=== PATIENT | male | born 1955 | race Caucasian/White ===

== ENCOUNTER → 2022-10-17 08:17 | Outpatient (BNVA) | payer MEDICARE, SELFPAY | PROVIDERS: Family Provider Family Medicine; PCP Family Medicine; Visit Provider Family Medicine | DX: Z00.00 Encounter for general adult medical examination without abnormal findings (principal); R07.9 Chest pain, unspecified; I25.10 Atherosclerotic heart disease of native coronary artery without angina pectoris; I10 Essential (primary) hypertension | CPT/HCPCS: 80053; 80061 ==

== ENCOUNTER → 2022-11-23 09:15 | Outpatient (BNVA) | payer MEDICARE, OTHER, SELFPAY | PROVIDERS: Family Provider Family Medicine; PCP Family Medicine; Visit Provider Family Medicine | DX: Z00.00 Encounter for general adult medical examination without abnormal findings (principal); R33.9 Retention of urine, unspecified | CPT/HCPCS: 84153 ==

== ENCOUNTER 2022-12-14 06:43 | Outpatient (CLI) | payer MEDICARE, SELFPAY ==
--- NOTE | 2022-12-14 | ECG_ITS ---
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 Interpretive Statements NAME OF STUDY: EXERCISE SESTAMIBI STRESS TEST INDICATION: [Chest Pain, ] EXERCISE DATA: The patient was exercised by Nitin protocol. Baseline heart rate was 73 beats per minute. Baseline blood pressure was 136/94 millimeters of mercury. Target heart rate was 131 beats per minute. Maximum heart rate achieved was 137, which was 104% of the target heart rate. Maximum blood pressure was 234/100 millimeters of mercury. Total exercise time was 8 minutes 3 seconds. Maximum METs achieved was 10.2. The reason for ending the test was maximal effort achieved. The patient complained of shortness of breath during the stress test, which then resolved at the end of the test. ELECTROCARDIOGRAM: BASELINE: Showed sinus rhythm, normal axis, no significant ST-T changes at the baseline noted. [] EXERCISE: At the peak exercise level, [] No significant ST-T changes suggestive of ischemia noted. [] RECOVERY: During the recovery period, heart rate dropped appropriately. No significant ST-T changes in the recovery suggestive of ischemia noted. [] CONCLUSION: 1. Exercise capacity is good 2. Heart rate response was appropriate. 3. Blood pressure response was hypertensive 4. Symptoms not suggestive of ischemia. 5. Electrocardiogram portion of the stress test was not suggestive of ischemia. 6. Nuclear scan will be documented separately. Electronically Signed On 12-31-2022 12:14:23 CDT by Montrell Gongora M.D. [id number]
[2022-12-14 07:04] VITALS: BMI 28.7
--- NOTE | 2022-12-14 07:07 | NMCV_ITS ---
NM claire perf SPECT r/s* [id number] Martín Cerrato Age: 67 Gender: M : 1955 Exam Date: 12/14/2022 08:05 Ordering Phys: Darian Vasquez MD Technologist: JULEE Borges Exam Location: [facility] Indications: CHEST PAIN STRESS TEST Please see separate stress test report in [employer] for full findings IMAGE PROTOCOL Rest/Stress 1 Exercise Day Radiopharmaceutical Dose (mCi) Administration Site Administered by Rest: Tc-99m 10.4 IV Vargas Anna, ELECTRICIAN'S HELPER Sestamibi Stress:Tc-99m 32.9 IV Vargas Anna, ELECTRICIAN[employer]S HELPER Sestamibi Rest: 14-Dec-2022 60 Discovery 630 Stress: 14-Dec-2022 30 Discovery 630 Radiopharmaceutical was injected at 85 % maximum heart rate. Images obtained in supine and prone position. SPECT RESULTS Technical Quality: Excellent Raw Data Analysis: Normal Image Corrections: No attenuation or motion correction applied Summed Stress Score: 0 Summed Rest Score: 3 Summed Difference Score: 0 PERFUSION FINDINGS SPECT images demonstrate homogeneous tracer distribution throughout the myocardium. FUNCTIONAL RESULTS (calculated via Gated SPECT) Stress Image LV EF (%): 69 Stress EDV (mL):107 TID: 0.94 Stress ESV (mL):33 FUNCTIONAL FINDINGS: There is normal left ventricular systolic function. IMPRESSIONS 1. Normal myocardial perfusion imaging with no evidence of ischemia 2. LV systolic function is normal Montrell Gongora MD (Electronically Signed) Final Date: 17 December 2022 12:03 S
[2022-12-14 09:29] VITALS: BP 137/84; PULSE 89
== END 2022-12-14 06:44 | disposition home or self-care (01) ==
LOC: CDL 06:45
PROVIDERS: PCP Family Medicine; Visit Provider Family Medicine
DX: R07.9 Chest pain, unspecified (principal)
CPT/HCPCS: 36415; 78452; 93017; A9500

== ENCOUNTER 2025-04-15 09:55 | Emergency (ER) | payer MEDICARE, SELFPAY ==
[2025-04-15 10:00] VITALS: BP 189/96; PULSE 62; RESP 16; TEMP 37; O2SAT 92; BMI 31.6
--- NOTE | 2025-04-15 10:09 | ECG_ITS ---
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 Measurements Intervals [place] Rate: 55 P: 47 NE: 225 QRS: 10 QRSD: 144 T: 103 QT: 442 QTc: 425 Interpretive Statements SINUS BRADYCARDIA WITH FIRST DEGREE AV BLOCK RIGHT BUNDLE BRANCH BLOCK [120+ ms QRS DURATION, UPRIGHT V1, 40+ ms S IN I/aVL/V4/V5/V6] POSSIBLE SEPTAL MYOCARDIAL INFARCTION , PROBABLY OLD [30 ms Q WAVE IN V1/V2] Compared to ECG 01/25/2019 02:09:39 First degree AV block now present Right bundle-branch block now present Myocardial infarct finding now present Sinus rhythm no longer present T-wave abnormality no longer present Electronically Signed On 04-17-2025 08:46:51 CDT by Montrell Gongora M.D. [id number]
--- NOTE | 2025-04-15 10:10 | XRR_ITS ---
PROCEDURE INFORMATION: Exam: XR Chest Exam date and time: 04/15/2025 10:23 AM Age: 69 years old Clinical indication: Pain; Other: Not specified; Additional info: Hypertension TECHNIQUE: Imaging protocol: Radiologic exam of the chest. Views: 1 view. COMPARISON: CR XR chest 1V [id number] 01/25/2019 2:20 AM FINDINGS: Lungs: Unremarkable. No consolidation. Pleural spaces: Unremarkable. No pleural effusion. No pneumothorax. Heart/Mediastinum: See Vasculature finding. Vasculature: Mild cardiomegaly and uncoiling of the thoracic aorta. Bones/joints: Unremarkable. XR/XR chest 1V portable [id number] IMPRESSION: No acute findings.
--- NOTE | 2025-04-15 10:15 | W.ED.HA ---
HPI - Headache General: Chief Complaint: Headache Stated Complaint: Milli Blood pressure,light headed headach Time Seen by Provider: 04/15/25 10:09 History of Present Illness: 69-year-old male with a history of hypertension who presents emergency room with headache, mild vision changes, ear pressure, congestion, cough and high blood pressure for the last 2 days. No chest pain. Although he says he does have occasional episodes of chest pain. He said a couple of years ago he had 2 separate stress test and initially was told he might of had a heart attack previously and then was told there was no damage to his heart. He has not had a cardiac cath. Again no chest pain. No shortness of breath. No abdominal pain. No nausea or vomiting. No focal motor deficits. No altered mental status Related Data Previous Rx's ?Medication ?Instructions ?Recorded clonidine HCl 0.1 mg tablet 0.1 mg PO DAILY #20 tabs 04/15/25 Allergies Allergy/AdvReac Type Severity Reaction Status Date / Time penicillin V Allergy Mild rash Verified 10/09/22 14:46 Review of Systems Narrative: Constitutional symptoms: Negative except as documented in HPI. Skin symptoms: Negative except as documented in HPI. Eye symptoms: Negative except as documented in HPI. ENMT symptoms: Negative except as documented in HPI. Respiratory symptoms: Negative except as documented in HPI. Cardiovascular symptoms: Negative except as documented in HPI. Gastrointestinal symptoms: Negative except as documented in HPI. Genitourinary symptoms: Negative except as documented in HPI. Musculoskeletal symptoms: Negative except as documented in HPI. Neurologic symptoms: Negative except as documented in HPI. Psychiatric symptoms: Negative except as documented in HPI. Endocrine symptoms: Negative except as documented in HPI. [facility]LY [facility] ED PFS: Medical History (Updated 04/15/25 @ 11:33 by Alessandra Krause MD) Coronary artery disease Hypertension Physical Exam Narrative: EXAM NARRATIVE: General: Alert, no acute distress. Skin: Warm, dry. Head: Normocephalic, atraumatic. Neck: Supple, trachea midline. Eye: Extraocular movements are intact. Ears, nose, mouth and throat: mucosa moist. Cardiovascular: Regular, Normal peripheral perfusion. Respiratory: Lungs are clear to auscultation, respirations are non-labored, breath sounds are equal, Symmetrical chest wall expansion. Gastrointestinal: Soft, Nontender, Non distended Musculoskeletal: Normal ROM, no deformity. Neurological: Alert and oriented, No focal neurological deficit observed. Psychiatric: Cooperative, appropriate mood & affect. Course Vital Signs: Vital signs: Vital Signs Temperature 98.6 F 04/15/25 10:00 Pulse Rate 54 L 04/15/25 11:28 Respiratory Rate 16 04/15/25 11:28 Blood Pressure 122/80 04/15/25 11:28 Pulse Oximetry 92 04/15/25 11:28 Oxygen Delivery Me thod Room Air 04/15/25 10:00 MDM - Headache Medical Decision Making Differential diagnosis for patient with chest pain includes but is not limited to and based on the above HPI, review of systems and physical exam: Pneumonia. unstable angina. angina. Acute coronary syndrome / AR. Pulmonary embolism. Costochondritis / musculoskeletal. Pleurisy. Pericarditis. Esophageal spasm. Pancreatis. Cholecystitis. Orders placed to evaluate differential diagnosis based on the above differential, HPI and physical exam EKG: Time 10:29 AM. Rate 55. Sinus bradycardia, No ST-T changes, no ectopy, right bundle branch block., This was reviewed and interpreted by myself the ER physician at 10:35 AM Chest x-ray: No acute process. No infiltrate. No pneumothorax. This was reviewed and interpreted by myself the emergency room physician. I also reviewed the radiology report. Lab Review: Laboratory results were reviewed and interpreted by myself the emergency room physician. No leukocytosis. No anemia. No renal failure. Liver enzymes are normal. Troponin is negative. Flu COVID and RSV are negative. I reviewed the patient's medical record. Reexamination: Patient remained stable. No increased work of breathing. No altered mental status. No focal motor deficits. Blood pressure has come down considerably without intervention to 122/81. When addressed this the did tell me that she wanted to disclose that she did give him some propranolol at home both last night and this morning. This is likely why his blood pressure came down. He has an appointment with his primary on Saturday. They can discuss if changes need to be made to his medication regimen. Assessment and plan: Accelerated hypertension - Discharged home - Discussed plan with patient. Answered any questions. - Evaluation and treatment of this problem were appropriate in the emergency setting. Lab Data 04/15/25 10:18 04/15/25 10:18 Radiology Impressions Chest X-Ray 04/15/25 10:10 IMPRESSION: No acute findings. Laboratory Results WBC 5.97 10^3/uL (3.29-11.43) 04/15/25 10:18 RBC 4.99 10^6/uL (3.85-5.65) 04/15/25 10:18 Hgb 14.50 g/dL (11.27-16.99) 04/15/25 10:18 Hct 43.0 % (37-53) 04/15/25 10:18 MCV 86.2 fl (82-101) 04/15/25 10:18 MCH 29.1 pg (27-33) 04/15/25 10:18 MCHC 33.7 g/dL (30-55) 04/15/25 10:18 RDW 13.2 % (12.1-15.1) 04/15/25 10:18 Plt Count 298 10^3/cmm (157-399) 04/15/25 10:18 MPV 9.6 fL (7.4-10.4) 04/15/25 10:18 Neut % (Auto) 57.9 % 04/15/25 10:18 Lymph % (Auto) 25.5 % 04/15/25 10:18 Webb % (Auto) 10.2 % 04/15/25 10:18 Eos % (Auto) 5.4 % 04/15/25 10:18 Baso % (Auto) 0.7 % 04/15/25 10:18 Neut # (Auto) 3.46 10^3/uL (1.8-7.7) 04/15/25 10:18 Lymph # (Auto) 1.5 10^3/uL (0.8-4.8) 04/15/25 10:18 Webb # (Auto) 0.6 10^3/uL (0.2-0.9) 04/15/25 10:18 Eos # (Auto) 0.3 10^3/uL (0.0-0.8) 04/15/25 10:18 Baso # (Auto) 0.0 10^3/uL (0.0-0.1) 04/15/25 10:18 Nucleated RBC % (auto) 0 % 04/15/25 10:18 Nucleated RBCs # 0.0 /100WBC 04/15/25 10:18 Sodium 138 mmol/L (136-145) 04/15/25 10:18 Potassium 4.5 mmol/L (3.5-5.1) 04/15/25 10:18 Chloride 103 mmol/L (98-107) 04/15/25 10:18 Carbon Dioxide 25 mmol/L (22-29) 04/15/25 10:18 Anion Gap 14.5 (5-19) 04/15/25 10:18 BUN 16 mg/dL (8-23) 04/15/25 10:18 Creatinine 0.8 mg/dL (0.7-1.2) 04/15/25 10:18 GFR Calculation 96.1 mL/min (90-130) 04/15/25 10:18 Glucose 111 mg/dL (65-115) 04/15/25 10:18 Calculated Osmolality 288 mOsm/kg (285-295) 04/15/25 10:18 Calcium 9.8 mg/dL (8.5-10.5) 04/15/25 10:18 Total Bilirubin 0.5 mg/dL (0.15-1.2) 04/15/25 10:18 AST 20 U/L (0-40) 04/15/25 10:18 ALT 20 U/L (0-41) 04/15/25 10:18 Alkaline Phosphatase 70 U/L (40-130) 04/15/25 10:18 Troponin T Baseline 9 ng/L (0-15) 04/15/25 10:18 Total Protein 7.4 g/dL (6.6-8.7) 04/15/25 10:18 Albumin 4.4 g/dL (3.5-5.2) 04/15/25 10:18 Globulin 3.0 g/dL (1.3-4.6) 04/15/25 10:18 Influenza A (PCR) Negative (Negative) 04/15/25 10:18 Influenza Type B (PCR) Negative (Negative) 04/15/25 10:18 RSV (PCR) Negative (Negative) 04/15/25 10:18 SARS-CoV-2 (PCR) Negative (Negative) 04/15/25 10:18 All radiology interpretation(s) finalized by discharge Discharge Plan Discharge Patient Disposition: Home Clinical Impression: Accelerated hypertension Condition: Stable Prescriptions: New clonidine HCl 0.1 mg tablet 0.1 mg PO DAILY Qty: 20 0RF Rx Instructions: For Systolic >185 diastolic >100. If you are needing this more than once a day you need to follow with your primary care provider Discharge Orders: Discharge ED (Routine); Ordered 04/15/25 Ordered By: Alessandra Krause Referrals: Darian Vasquez MD [Primary Care Provider, [facility]] Discharge Diet: Usual diet Discharge Activity: Increase activity as tolerated Patient Instructions: Hypertension (ED), Opioid Safety, Pain Management, Patient Portal & Nancy Instructions Activity Restrictions/Additional Instructions: Thank you for choosing [facility] for your healthcare needs today. You have been screened and evaluated and felt safe for discharge. Health conditions do change or evolve sometimes and as such it is important that you follow up with your Primary Doctor to be re checked, 3-5 days is a general good time frame for follow up. You are always welcome to return to the ED for re assessment if your symptoms are worsening or you have new concerns Print Language: Upper Sorbian Coding Level of Care Code ED Director Of Fundraising for Shea Faustin
[2025-04-15 10:39] LABS: Hematocrit 43.0 % (37-53); Hemoglobin 14.50 g/dL (11.27-16.99); Mean Corpuscular HGB Conc 33.7 g/dL (30-55); Mean Corpuscular Hemoglobin 29.1 pg (27-33); Mean Corpuscular Volume 86.2 fl (82-101); Nucleated Red Blood Cells % 0 %; Platelet Count 298 10^3/cmm (157-399); Red Blood Count 4.99 10^6/uL (3.85-5.65); White Blood Count 5.97 10^3/uL (3.29-11.43)
[2025-04-15 10:46] LABS: Troponin(5th) Baseline 9 ng/L (0-15)
[2025-04-15 10:50] LABS: Alanine Aminotransferase 20 U/L (0-41); Albumin Level 4.4 g/dL (3.5-5.2); Alkaline Phosphatase 70 U/L (40-130); Anion Gap 14.5 (5-19); Aspartate Amino Transferase 20 U/L (0-40); Blood Urea Nitrogen 16 mg/dL (8-23); Calcium 9.8 mg/dL (8.5-10.5); Carbon Dioxide 25 mmol/L (22-29); Chloride 103 mmol/L (98-107); Creatinine Clr Calc Pharmacy 101.5595; Globulin 3.0 g/dL (1.3-4.6); Glucose 111 mg/dL (65-115); Osmolality Calculated 288 mOsm/kg (285-295); Potassium 4.5 mmol/L (3.5-5.1); Sodium 138 mmol/L (136-145); Total Protein 7.4 g/dL (6.6-8.7)
[2025-04-15 10:59] VITALS: BP 122/81; PULSE 59; RESP 18; O2SAT 92
[2025-04-15 11:14] LABS: Respiratory Syncytial Virus Ce NEGATIVE (Negative); SARS-CoV-2 PCR NEGATIVE (Negative)
[2025-04-15 11:28] VITALS: BP 122/80; PULSE 54; RESP 16; O2SAT 92
[2025-04-15 11:45] VITALS: BP 119/85; PULSE 59; RESP 18; O2SAT 93
== END 2025-04-15 11:46 | disposition home or self-care (01) ==
PROVIDERS: Emergency Provider Emergency Medicine; PCP Family Medicine
DX: I10 Essential (primary) hypertension (principal); Z11.52 Encounter for screening for COVID-19; I25.10 Atherosclerotic heart disease of native coronary artery without angina pectoris
CPT/HCPCS: 36415; 71045; 80053; 84484; 85025; 87637; 93005; 99285

== ENCOUNTER → 2025-05-05 09:34 | Outpatient (BNVA) | payer MEDICARE, SELFPAY | PROVIDERS: PCP Family Medicine; Visit Provider Family Medicine | DX: R07.9 Chest pain, unspecified (principal); I10 Essential (primary) hypertension; N40.0 Benign prostatic hyperplasia without lower urinary tract symptoms | CPT/HCPCS: 80053; 80061; 84153 ==